=== PATIENT | male | born 1965 | race Caucasian/White ===

== ENCOUNTER → 2016-11-19 | Day surgery (SDC) | payer BC, OTHER ==
[~2016-11-19] MED LIST: Lactated Ringers 1,000 ML IV SCH; Propofol 200 MG/20 ML SDV IV ONE
[2016-11-19 12:30] VITALS: BP 123/79
--- NOTE | 2016-11-22 07:20 | OR ---
DATE OF OPERATION: 11/19/2016 PREOPERATIVE DIAGNOSIS: SCREENING COLONOSCOPY. POSTOPERATIVE DIAGNOSIS: SCREENING COLONOSCOPY. SURGEON: Avni Vazquez MD PROCEDURE: FULL-LENGTH COLONOSCOPY WITH POLYP REMOVAL X1. 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 COMPLICATIONS: None. SPECIMEN: Cecal tubular adenoma, less than 0.5 cm. RECOMMENDATIONS: Followup colonoscopy in 5 years. INDICATIONS: The patient was in for a physical. He never had a prior colonoscopy. Rogelio Rodriguez PA-C, recommended a screening procedure. DESCRIPTION OF PROCEDURE: The patient was prepped and draped, placed in the left lateral decubitus position. A lubricated Olympus colonoscope was inserted and easily advanced to the cecum. Direct visualization of the ileocecal valve and appendiceal orifice was accomplished. Bowel prep was fine. Just on the outside of the cecal pouch, the patient had a small flat tubular adenoma less than 0.5 cm removed in its entirety with 3 separate forceps biopsies. Resolution of bleeding was spontaneous. The rest of the ascending, transverse, and descending colon were completely benign. The patient did have a few scattered diverticula in the mid and distal sigmoid area, very minimal in severity. No acute inflammatory changes. There were no vascular abnormalities or signs of colitis. No other polyps, masses, ulceration, or bleeding sites. The rectal vault was unremarkable. Retroflexion of the scope in the rectum showed no anal lesions. Air was then suctioned and the scope was removed without complication. MARTINA /[id number]
== END ==
LOC: CC.SDS 10:32
PROVIDERS: ATTEND Family Medicine
DX: Z12.11 Encounter for screening for malignant neoplasm of colon (principal); D12.0 Benign neoplasm of cecum; G47.30 Sleep apnea, unspecified; Z90.49 Acquired absence of other specified parts of digestive tract; Z98.890 Other specified postprocedural states; F17.200 Nicotine dependence, unspecified, uncomplicated; Z72.0 Tobacco use
CPT/HCPCS: 45380; J2704; J7120

== ENCOUNTER → 2021-02-20 | Day surgery (SDC) | payer BC ==
[~2021-02-20] MED LIST changes: +Ketamine 200 MG/20 ML MDV ONE; -Lactated Ringers 1,000 ML IV SCH; -Propofol 200 MG/20 ML SDV IV ONE; +Propofol 200 MG/20 ML SDV ONE; +fentaNYL 100 MCG/2 ML SDV ONE
[2021-02-20] MEDS: Lactated Ringers 1,000 ML IV SCH (09:28)
[2021-02-20 11:20] VITALS: BP 126/78; PULSE 53
--- NOTE | 2021-02-21 08:44 | OR ---
DATE OF OPERATION: 02/20/2021 PREOPERATIVE DIAGNOSIS: HEMATOCHEZIA. POSTOPERATIVE DIAGNOSIS: HEMATOCHEZIA. SURGEON: Avni Vazquez MD PROCEDURE: DIAGNOSTIC COLONOSCOPY WITH SNARE POLYPECTOMY X2, FORCEPS POLYP REMOVAL X1. ANESTHESIA: MAC. COMPLICATIONS: None. SPECIMEN: Tubular adenomas x3, see report. FINDINGS: 1. Full-length colonoscopy. 2. Three separate tubular adenomas, all 5 mm or less. 3. Internal hemorrhoids. 4. Mild sigmoid diverticulosis. RECOMMENDATIONS: Routine colonoscopy in 5 years. INDICATIONS: The patient had a prior colonoscopy about 5 years ago and had a polyp removed. He has been having some on and off again hematochezia. Jean-Paul Rodriguez sent him for diagnostic scope. DESCRIPTION OF PROCEDURE: The patient was prepped and draped, placed in the left lateral decubitus position. A lubricated Olympus colonoscope was inserted and easily advanced to the cecum. Direct visualization of the ileocecal valve and appendiceal orifice was accomplished. The bowel prep was adequate. Upon withdrawal of the scope, cecal pouch appeared benign. Right on the edge of the cecal pouch, the patient had a 5 or 6 mm tubular adenoma, slightly flatter. We removed it with a snare and suctioned into polyp trap #1. The rest of the ascending and transverse colons were completely benign. The patient does have scattered diverticula in the left colon throughout most of the sigmoid and rectosigmoid area, very mild in severity. He had a second polyp around 45 cm, also was more flat and only about 3 to 4 mm, removed it with 2 separate forceps biopsies in its entirety. A third polyp was present in the rectal vault, a typical tubular adenoma about 3 to 4 mm, removed with a snare, and suctioned into polyp trap #2. The rest of the rectal vault was benign. Retroflexion did confirm prominent internal hemorrhoids. Air was then suctioned. The scope removed without complication. LIOR/LORNA /[id number]
== END ==
LOC: CC.SDS 09:08
PROVIDERS: ATTEND Family Medicine
DX: D12.0 Benign neoplasm of cecum (principal); D12.5 Benign neoplasm of sigmoid colon; D12.8 Benign neoplasm of rectum; K64.8 Other hemorrhoids; K57.30 Diverticulosis of large intestine without perforation or abscess without bleeding; F17.210 Nicotine dependence, cigarettes, uncomplicated; E78.5 Hyperlipidemia, unspecified; G47.30 Sleep apnea, unspecified; Z90.49 Acquired absence of other specified parts of digestive tract
CPT/HCPCS: 00811; J2704; J3010; J7120